=== PATIENT | female | born 1970 | race Caucasian/White ===

== ENCOUNTER 2016-09-15 22:32 | Emergency (ER) | payer OTHER ==
[~2016-09-15] VITALS: Ht 172.7 cm; Wt 126.1 kg
[~2016-09-15 22:32] MED LIST: ADVAIR 250-501 EACH IH; ADVAIR 250/501 DISK IH; ADVAIR 500/501 DISK IH; ALAVERT10 MG PO; ALBUTEROL17 GM IH; AMITRIPTYLINE; ASPIRIN81 M1 PO; ATROVENT H200 INHALA; CLARITIN10 M3 PO; COMBIVENT RESPIM4 GM IH; GLUCOPHAGE500 MG PO; HYDROCHLOROTH12.5 M3 PO; IMITREX100 MG PO; LEVOFLOXACIN750 MG PO; MELOXICAM15 MG PO; MOTRIN800 MG PO; NAPROSYN500 MG PO; PERCOCET 5/31 TABLET PO; PREDNISONE10 MG PO; SINGULAIR10 MG PO; TOPAMAX50 MG PO; TRAMADOL HCL50 MG PO; VENTOLIN HFA18 GM IH; VERAPAMIL HCL120 MG PO
[2016-09-15 22:35] VITALS: BP 182/93
== END 2016-09-16 01:06 | disposition home or self-care (01) ==
LOC: EME 22:32
PROC: 0HQFXZZ Repair Right Hand Skin, External Approach (ICD-10-PCS; principal; 2016-09-16)
DX: S61.411A Laceration without foreign body of right hand, initial encounter (principal); W25.XXXA Contact with sharp glass, initial encounter; Y93.G1 Activity, food preparation and clean up; E11.9 Type 2 diabetes mellitus without complications; I10 Essential (primary) hypertension
CPT/HCPCS: 73130; 99281; 99285

== ENCOUNTER 2016-12-09 14:41 | Emergency (ER) | payer OTHER ==
[~2016-12-09] VITALS: Ht 172.7 cm; Wt 125.6 kg
[2016-12-09 15:48] LABS: HEMATOCRIT 38.4 % (36.0-46.0); MCH 26.9 PG (29.0-34.0); MCHC 32.6 G/DL (30.0-36.0); MCV 82.8 FL (83-99); MEAN PLAT.VOLUME 10.1 uM^3 (9.5-12.4); PLATELET COUNT 276 K/uL (156-360); RBC DIS.WIDTH-CV 13.7 % (11.8-14.6); RBC DIS.WIDTH-SD 40.8 % (39-53); RED BLOOD COUNT 4.64 M/uL (3.80-5.20)
[2016-12-09 15:58] LABS: CHLORIDE 109 mEq/L (99-109); POTASSIUM 4.1 mEq/L (3.7-5.4); SODIUM 139 mEq/L (136-147)
[2016-12-09 15:59] LABS: GLUCOSE 131 mg/dL (70-99)
[2016-12-09 16:01] LABS: ANION GAP 12 MEQ/L (2-14)
[2016-12-09 16:03] LABS: GFR ESTIMATE (CALCULATED) > 59 mL/min/
[2016-12-09 16:04] LABS: UREA NITROGEN (BUN) 21 mg/dL (9-23)
[2016-12-09 16:09] LABS: TROP-I INTERPRETATION NEGATIVE; TROPONIN-I < 0.01 ng/mL (0.0-0.30)
[2016-12-09] MEDS ORDERED: VENLAFAXINE HCL75 M3 PO (17:14)
[2016-12-09 17:42] LABS: D-DIMER ELISA 0.67 mg/L FEU (< 0.57)
[2016-12-09 19:20] LABS: TROP-I INTERPRETATION NEGATIVE; TROPONIN-I < 0.01 ng/mL (0.0-0.30)
[2016-12-09 21:06] VITALS: BP 134/72
== END 2016-12-09 21:06 | disposition home or self-care (01) ==
LOC: EME 14:41
PROVIDERS: Physician Assistant
DX: R07.9 Chest pain, unspecified (principal); R00.2 Palpitations; M25.512 Pain in left shoulder; R06.00 Dyspnea, unspecified; M79.662 Pain in left lower leg; R51 Headache; R00.0 Tachycardia, unspecified; J45.909 Unspecified asthma, uncomplicated; I10 Essential (primary) hypertension; Z86.718 Personal history of other venous thrombosis and embolism; Z87.891 Personal history of nicotine dependence
CPT/HCPCS: 71020; 71275; 80048; 84484; 85027; 85379; 93005; 93971; 99281; 99285; J7030

== ENCOUNTER 2017-03-25 17:24 | Emergency (ER) | payer OTHER ==
[~2017-03-25] VITALS: Ht 170.2 cm; Wt 130.2 kg
[~2017-03-25 17:24] MED LIST changes: +VENLAFAXINE HCL75 M3 PO
[2017-03-25] MEDS ORDERED: MOTRIN800 MG PO (20:21)
[2017-03-25 20:37] VITALS: BP 153/99
== END 2017-03-25 20:37 | disposition home or self-care (01) ==
LOC: EME 17:24
DX: M77.32 Calcaneal spur, left foot (principal)
CPT/HCPCS: 73610; 99281; 99283

== ENCOUNTER 2017-06-10 12:26 | Emergency (ER) | payer OTHER ==
[~2017-06-10] VITALS: Ht 172.7 cm; Wt 127.6 kg
[2017-06-10 13:24] LABS: HEMATOCRIT 40.4 % (36.0-46.0); MCH 28.1 PG (29.0-34.0); MCHC 33.4 G/DL (30.0-36.0); MEAN PLAT.VOLUME 10.3 uM^3 (9.5-12.4); PLATELET COUNT 238 K/uL (156-360); RBC DIS.WIDTH-CV 13.2 % (11.8-14.6); RBC DIS.WIDTH-SD 41.1 % (39-53); RED BLOOD COUNT 4.81 M/uL (3.80-5.20); WHITE BLOOD COUNT 9.3 K/uL (4.1-10.2)
[2017-06-10 13:24] LABS: ADD MIUA? YES; BILIRUBIN NEGATIVE; BLOOD NEGATIVE; COLOR YELLOW ((YELLOW)); GLUCOSE (STRIP) NEGATIVE; KETONES NEGATIVE; LEUKOCYTES LARGE; NITRITE NEGATIVE; PROTEIN (STRIP) 30; SPECIFIC GRAVITY 1.018 (1.000-1.030); UROBILINOGEN 0.2 MG/DL (0.2-1.0)
[2017-06-10 13:32] LABS: CHLORIDE 109 mEq/L (99-109); POTASSIUM 4.4 mEq/L (3.7-5.4); SODIUM 140 mEq/L (136-147)
[2017-06-10 13:34] LABS: GLUCOSE 129 mg/dL (70-99)
[2017-06-10 13:36] LABS: ANION GAP 14 MEQ/L (2-14); TOTAL BILIRUBIN 0.3 mg/dL (0.0-1.0)
[2017-06-10 13:38] LABS: ALKALINE PHOSPHATASE 88 IU/L (3-129); GFR ESTIMATE (CALCULATED) 57 mL/min/
[2017-06-10 13:39] LABS: UREA NITROGEN (BUN) 11 mg/dL (9-23)
[2017-06-10 13:40] LABS: RED BLOOD CELLS NONE SEEN /HPF (0-5)
[2017-06-10 13:41] LABS: BACTERIA 1+ /HPF; EPITHELIAL CELLS 2+ /HPF; MUCUS NONE SEEN /LPF; UCUL ADDED? YES
[2017-06-10 13:48] LABS: QUANTITATIVE HCG < 4.0 MIU/ML
[2017-06-10 14:10] LABS: LIPASE 19 U/L (1.0-51.0)
[2017-06-10] MEDS ORDERED: BENTYL10 MG PO (15:34)
[2017-06-10] MEDS ORDERED: ZOFRAN ODT4 MG PO (15:34)
[2017-06-10] MEDS ORDERED: BACTRIM,SEPT1 TABLET PO (15:39)
[2017-06-10 15:49] VITALS: BP 114/73
== END 2017-06-10 15:50 | disposition home or self-care (01) ==
LOC: EME 12:26
DX: K42.9 Umbilical hernia without obstruction or gangrene (principal); N39.0 Urinary tract infection, site not specified; B34.9 Viral infection, unspecified; E11.9 Type 2 diabetes mellitus without complications; J30.2 Other seasonal allergic rhinitis; I10 Essential (primary) hypertension; J45.909 Unspecified asthma, uncomplicated; G43.909 Migraine, unspecified, not intractable, without status migrainosus
CPT/HCPCS: 74177; 80053; 81003; 83690; 84702; 85027; 87086; 99281; 99285; J2405; J3010; J7030

== ENCOUNTER → 2017-09-03 | Outpatient (CLI) | payer OTHER ==
[~2017-09-03] VITALS: Ht 172.7 cm; Wt 128.5 kg
[~2017-09-03] MED LIST changes: +AUGMENTIN875 MG PO; +BACTRIM,SEPT1 TABLET PO; +BENTYL10 MG PO; +GLUCOPHAGE850 MG PO; +NORCO 10/3251 TABLET PO; +PREDNISONE20 MG PO; +UNABLE TO OBTAIN; +VALIUM5 MG PO; +ZOFRAN ODT4 MG PO
[2017-09-03 08:29] LABS: POINT-OF-CARE METER ID UU14107333
== END | disposition home or self-care (01) ==
LOC: AMB 07:28
PROVIDERS: Internal Medicine
DX: K29.70 Gastritis, unspecified, without bleeding (principal); K29.80 Duodenitis without bleeding; K22.10 Ulcer of esophagus without bleeding; K59.00 Constipation, unspecified; E11.65 Type 2 diabetes mellitus with hyperglycemia; I10 Essential (primary) hypertension; E78.5 Hyperlipidemia, unspecified; G43.909 Migraine, unspecified, not intractable, without status migrainosus; E66.9 Obesity, unspecified; Z68.42 Body mass index [BMI] 45.0-49.9, adult; J45.909 Unspecified asthma, uncomplicated; F41.8 Other specified anxiety disorders; Z79.84 Long term (current) use of oral hypoglycemic drugs; Z79.82 Long term (current) use of aspirin; Z80.41 Family history of malignant neoplasm of ovary; Z82.61 Family history of arthritis; Z82.49 Family history of ischemic heart disease and other diseases of the circulatory system
CPT/HCPCS: 82948; 88305; 88342 TC; J2250; J2405

== ENCOUNTER 2017-11-22 05:58 | Day surgery (SDC) | payer OTHER ==
[~2017-11-22] VITALS: Ht 172.7 cm; Wt 131.5 kg
[~2017-11-22 05:58] MED LIST changes: +AMITIZA24 MICROGR PO; +LEXAPRO10 MG PO; +LORATADINE10 M3 PO; +OMEPRAZOLE40 M1 PO; +PRAVACHOL20 MG PO; +ST. JOSEPH ASPI81 MG PO; -UNABLE TO OBTAIN
[2017-11-22 07:17] VITALS: BP 133/79
[2017-11-22 10:20] VITALS: BP 117/71
[2017-11-22 11:10] VITALS: BP 124/72
== END 2017-11-22 11:20 | disposition home or self-care (01) ==
LOC: SDC 05:58
PROVIDERS: Obstetrics & Gynecology
DX: N92.1 Excessive and frequent menstruation with irregular cycle (principal); Z30.430 Encounter for insertion of intrauterine contraceptive device; E11.9 Type 2 diabetes mellitus without complications; Z87.891 Personal history of nicotine dependence; J45.909 Unspecified asthma, uncomplicated; E66.01 Morbid (severe) obesity due to excess calories; Z68.41 Body mass index [BMI] 40.0-44.9, adult; K21.9 Gastro-esophageal reflux disease without esophagitis; Z79.84 Long term (current) use of oral hypoglycemic drugs; Z88.8 Allergy status to other drugs, medicaments and biological substances; Z90.49 Acquired absence of other specified parts of digestive tract; Z98.51 Tubal ligation status; Z80.49 Family history of malignant neoplasm of other genital organs; Z82.5 Family history of asthma and other chronic lower respiratory diseases; Z83.3 Family history of diabetes mellitus; Z82.49 Family history of ischemic heart disease and other diseases of the circulatory system; Z83.511 Family history of glaucoma; Z82.61 Family history of arthritis; Z83.49 Family history of other endocrine, nutritional and metabolic diseases
CPT/HCPCS: 82948; 88305; J0330; J0690; J1100; J1170; J1885; J2405; J3010; Q0175

== ENCOUNTER 2017-11-24 19:14 | Observation (INO) | payer OTHER ==
[~2017-11-24] VITALS: Ht 170.2 cm; Wt 137.1 kg
[2017-11-24 21:33] LABS: HEMATOCRIT 35.3 % (36.0-46.0); HEMOGLOBIN 11.4 G/DL (11.9-15.5); MCH 28.3 PG (29.0-34.0); MCHC 32.3 G/DL (30.0-36.0); MCV 87.6 FL (83-99); PLATELET COUNT 224 K/uL (156-360); RBC DIS.WIDTH-CV 13.3 % (11.8-14.6); RBC DIS.WIDTH-SD 42.1 % (39-53); RED BLOOD COUNT 4.03 M/uL (3.80-5.20); WHITE BLOOD COUNT 9.8 K/uL (4.1-10.2)
[2017-11-24 21:45] LABS: ALBUMIN 3.9 g/dL (3.2-4.8); CHLORIDE 107 mEq/L (99-109); POTASSIUM 3.8 mEq/L (3.7-5.4); SODIUM 141 mEq/L (136-147)
[2017-11-24 21:47] LABS: GLUCOSE 140 mg/dL (70-99); TOTAL PROTEIN 7.1 g/dL (6.4-8.3)
[2017-11-24 21:49] LABS: TOTAL BILIRUBIN 0.2 mg/dL (0.0-1.0)
[2017-11-24 21:51] LABS: ALKALINE PHOSPHATASE 84 IU/L (3-129); CREATININE 0.9 mg/dL (0.6-1.3); GFR ESTIMATE (CALCULATED) > 59 mL/min/
[2017-11-24 21:52] LABS: AST (GOT) 49 IU/L (2-34); UREA NITROGEN (BUN) 11 mg/dL (9-23)
[2017-11-24 21:54] LABS: ALT (GPT) 25 IU/L (3-49); CREATINE KINASE 688 IU/L (1-294)
[2017-11-24 22:00] LABS: APPEARANCE CLEAR ((CLEAR)); BILIRUBIN NEGATIVE; BLOOD MODERATE; COLOR STRAW ((YELLOW)); GLUCOSE (STRIP) NEGATIVE; KETONES NEGATIVE; LEUKOCYTES TRACE; NITRITE NEGATIVE; PROTEIN (STRIP) NEGATIVE; UROBILINOGEN 0.2 MG/DL (0.2-1.0)
[2017-11-24 22:02] LABS: QUANTITATIVE HCG < 4.0 MIU/ML
[2017-11-24 22:03] LABS: BACTERIA RARE /HPF; EPITHELIAL CELLS 1+ /HPF; MUCUS NONE SEEN /LPF; RED BLOOD CELLS 0-5 /HPF (0-5); WHITE BLOOD CELLS 0-5 /HPF (0-5)
[2017-11-24 22:52] LABS: TROP-I INTERPRETATION NEGATIVE; TROPONIN-I < 0.01 ng/mL (0.0-0.30)
[2017-11-25 00:43] LABS: TROP-I INTERPRETATION NEGATIVE; TROPONIN-I 0.02 ng/mL (0.0-0.30)
[2017-11-25] MEDS ORDERED: GABAPENTIN300 MG PO (08:46)
[2017-11-25] MEDS ORDERED: RANITIDINE HCL300 MG PO (08:47)
[2017-11-25] MEDS ORDERED: SUMATRIPTAN SU100 MG PO (08:47)
[2017-11-25 09:32] LABS: HEMOGLOBIN A1c (GLYCOHEMOGLOB) 7.2 % (Below 5.7)
[2017-11-25 12:33] VITALS: BP 133/75
[2017-11-25 19:32] VITALS: BP 123/72
[2017-11-25 23:30] VITALS: BP 109/65
[2017-11-26 03:46] VITALS: BP 111/68
[2017-11-26 06:45] LABS: HEMATOCRIT 37.2 % (36.0-46.0); HEMOGLOBIN 11.9 G/DL (11.9-15.5); MCH 27.4 PG (29.0-34.0); MCV 85.5 FL (83-99); PLATELET COUNT 251 K/uL (156-360); RBC DIS.WIDTH-CV 13.3 % (11.8-14.6); RBC DIS.WIDTH-SD 40.8 % (39-53); RED BLOOD COUNT 4.35 M/uL (3.80-5.20); WHITE BLOOD COUNT 9.7 K/uL (4.1-10.2)
[2017-11-26 07:15] LABS: CHLORIDE 107 MEQ/L (99-109); CREATININE 0.7 MG/DL (0.6-1.3); GFR ESTIMATE (CALCULATED) > 59 mL/min/; GLUCOSE 124 mg/dL (70-99); POTASSIUM 4.4 MEQ/L (3.7-5.4); SODIUM 141 MEQ/L (136-147); UREA NITROGEN (BUN) 9 mg/dL (9-23)
[2017-11-26 07:28] VITALS: BP 113/72
[2017-11-26 09:09] LABS: ALBUMIN 3.5 G/DL (3.2-4.8); ALKALINE PHOSPHATASE 70 IU/L (3-129); ALT (GPT) 20 IU/L (3-49); AST (GOT) 33 IU/L (2-34); DIRECT BILIRUBIN 0.1 mg/dL (0.0-0.3); TOTAL BILIRUBIN 0.3 MG/DL (0.0-1.0); TOTAL PROTEIN 6.3 G/DL (6.4-8.3)
[2017-11-26 11:43] VITALS: BP 114/69
[2017-11-26] MEDS ORDERED: TRICOR145 MG PO (13:06)
[2017-11-26] MEDS ORDERED: ULTRAM50 MG PO (13:20)
== END 2017-11-26 15:32 | disposition home or self-care (01) ==
LOC: EME 19:14 → EDOF 11-25 03:06 → 2EASTP 11-25 03:06 → ENRESERV 11-25 03:17 → 2EAST 11-25 10:51 → ENRESERV 11-25 20:35 → 2EASTP 11-25 20:45
PROVIDERS: Hospitalist; Internal Medicine; Physician Assistant
DX: R09.1 Pleurisy (principal); R07.81 Pleurodynia; Z98.890 Other specified postprocedural states; K76.0 Fatty (change of) liver, not elsewhere classified; J45.909 Unspecified asthma, uncomplicated; E11.9 Type 2 diabetes mellitus without complications; E66.01 Morbid (severe) obesity due to excess calories; Z68.42 Body mass index [BMI] 45.0-49.9, adult; E78.5 Hyperlipidemia, unspecified; I10 Essential (primary) hypertension; K21.9 Gastro-esophageal reflux disease without esophagitis; M60.80 Other myositis, unspecified site; T46.6X5A Adverse effect of antihyperlipidemic and antiarteriosclerotic drugs, initial encounter; Z87.891 Personal history of nicotine dependence; F34.1 Dysthymic disorder; Z79.82 Long term (current) use of aspirin; Z88.8 Allergy status to other drugs, medicaments and biological substances; Z79.84 Long term (current) use of oral hypoglycemic drugs
CPT/HCPCS: 71046; 71275; 76705; 80048; 80053; 80076; 81003; 82550; 82948; 83036; 84484; 84702; 85027; 85379; 85610; 85730; 93005; 94640; 94640 76; 99202; 99281; 99285; G0378; J1644; J1885; J2270; J3010; J7030; J7120

== ENCOUNTER 2018-05-13 16:19 | Emergency (ER) | payer OTHER ==
[~2018-05-13] VITALS: Ht 170.2 cm; Wt 121.0 kg
[~2018-05-13 16:19] MED LIST changes: +GABAPENTIN300 MG PO; +RANITIDINE HCL300 MG PO; +SUMATRIPTAN SU100 MG PO; +TRICOR145 MG PO; +ULTRAM50 MG PO
[2018-05-13 17:52] LABS: HEMATOCRIT 37.9 % (36.0-46.0); HEMOGLOBIN 12.6 G/DL (11.9-15.5); MCH 27.8 PG (29.0-34.0); MCHC 33.2 G/DL (30.0-36.0); MCV 83.5 FL (83-99); PLATELET COUNT 323 K/uL (156-360); RBC DIS.WIDTH-CV 13.2 % (11.8-14.6); RBC DIS.WIDTH-SD 39.9 % (39-53); RED BLOOD COUNT 4.54 M/uL (3.80-5.20)
[2018-05-13 18:02] LABS: CHLORIDE 109 mEq/L (99-109); POTASSIUM 3.8 mEq/L (3.7-5.4); SODIUM 140 mEq/L (136-147)
[2018-05-13 18:03] LABS: GLUCOSE 153 mg/dL (70-99)
[2018-05-13 18:07] LABS: CREATININE 1.5 mg/dL (0.6-1.3); GFR ESTIMATE (CALCULATED) 40 mL/min/
[2018-05-13 18:08] LABS: UREA NITROGEN (BUN) 15 mg/dL (9-23)
[2018-05-13 19:20] LABS: TROP-I INTERPRETATION NEGATIVE; TROPONIN-I < 0.01 ng/mL (0.0-0.30)
[2018-05-13 19:42] LABS: D-DIMER ELISA < 150.00 ng/mLDDU (<230)
[2018-05-13 19:50] LABS: QUANTITATIVE HCG < 4.0 MIU/ML
[2018-05-13] MEDS ORDERED: TRAMADOL HCL50 MG PO (20:52)
[2018-05-13 21:29] LABS: TROP-I INTERPRETATION NEGATIVE; TROPONIN-I < 0.01 ng/mL (0.0-0.30)
[2018-05-13 21:40] VITALS: BP 147/91
== END 2018-05-13 21:42 | disposition home or self-care (01) ==
LOC: EXP 16:19 → EME 16:19 → EXP 21:42
PROVIDERS: Physician Assistant Medical
DX: M54.6 Pain in thoracic spine (principal); E11.9 Type 2 diabetes mellitus without complications; K21.9 Gastro-esophageal reflux disease without esophagitis; J45.909 Unspecified asthma, uncomplicated; Z79.82 Long term (current) use of aspirin; Z88.8 Allergy status to other drugs, medicaments and biological substances; Z87.891 Personal history of nicotine dependence
CPT/HCPCS: 71046; 80048; 84484; 84702; 85027; 85379; 94640; 99281; 99285; J2270